=== PATIENT | female | born 1940 | race Hispanic/Latino ===

== ENCOUNTER 2016-07-10 02:40 | Emergency (ER) | payer MEDICARE ==
[2016-07-10 03:55] LABS: Hematocrit 38.5 % (30.3-42.9); Hemoglobin 12.9 gm/dl (10.1-14.3); Mean Corpuscular HGB Conc 34 % (30-34); Mean Corpuscular Hemoglobin 30 pg (28-32); Mean Corpuscular Volume 91 fl (79-97); Platelet Count 154 K/mm3 (140-440); Red Blood Count 4.24 M/mm3 (3.65-5.03); Red Cell Distribution Width 14.6 % (13.2-15.2)
[2016-07-10 04:16] LABS: BUN/Creatinine Ratio 22.14; Calcium 10.2 mg/dL (8.4-10.2); Chloride 105.7 mmol/L (98-107); Potassium 4.1 mmol/L (3.6-5.0)
[2016-07-10 04:56] LABS: Bilirubin,Urine NEG (Negative); Blood,Urine NEG (Negative); Ketones,Urine NEG (Negative); Leukocyte Esterase,Urine TR (Negative); Mucus,Urine FEW /HPF; Nitrite,Urine NEG (Negative); Protein,Urine <15 mg/dL mg/dL (Negative); Urobilinogen,Urine < 2.0 mg/dL (<2.0)
--- NOTE | 2016-07-10 05:17 | Emergency Department Report ---
ED General Adult HPI - General Chief complaint: Seizure Stated complaint: SEIZURE Time Seen by Provider: 07/10/16 03:19 Source: EMS (ems notes not available at time of chart dictation), RN notes reviewed, old records reviewed Mode of arrival: Stretcher Limitations: Other (patient nonverbal as per old medical records and oven unloader.) - History of Present Illness Initial comments: This is a 75-year-old female, previously unknown to me. Patient nonverbal. She is unable to offer history. History is obtained by speaking to the patient' s oven unloader at the [facility], Miss Maryam Almeida Phone number: [phone]; [phone] As for the patient's oven unloader, patient was found to have a generalized tonic- clonic episode which lasted a few minutes. There was no trauma, the patient did not fall or hit her head. Energy Efficiency Specialist states patient has been compliant with medications. Energy Efficiency Specialist states no fever, lethargy, vomiting, irritability, and oven unloader states compliance with medications. She thinks the last convulsive episode was 6 months ago but is not certain. Medications include Keppra,zonisamide -: Sudden, minutes(s) Improves with: none Worsens with: none Associated Symptoms: denies other symptoms, other (as per oven unloader, only symptoms were convulsion) - Related Data Home Medications Medication Instructions Recorded Confirmed Last Taken Lactose-Reduced Food [Ensure 1 can PO BID 01/01/15 07/10/16 07/09/16 Liquid] Alendronate Sodium [Fosamax] 70 mg PO QWEEK 07/10/16 07/10/16 07/07/16 Ca/D3/Mag Ox/Zinc/Crystal Evaluator/Dat/Bor 1 each PO QAM 07/10/16 07/10/16 07/09/16 [Calcium 600+D3 Plus Caplet] Levothyroxine [Synthroid] 50 mcg PO QAM 07/10/16 07/10/16 07/09/16 Metoclopramide HCl [Reglan TAB] 5 mg PO BID 07/10/16 07/10/16 07/09/16 Multivits,Ca,Minerals/Iron/FA 1 each PO QDAY 07/10/16 07/10/16 07/09/16 [Thera M Plus Tablet] [place]-3 Fatty Acids/Fish Oil [Fish 1 each PO BID 07/10/16 07/10/16 07/09/16 Oil] Ranitidine HCl [Zantac 300 MG TAB] 300 mg PO QPM 07/10/16 07/10/16 07/09/16 Simethicone [Gas Relief] 40 mg PO BID 07/10/16 07/10/16 07/09/16 Zonisamide 300 mg PO BID 07/10/16 07/10/16 07/09/16 Previous Rx's Medication Instructions Recorded Last Taken Type Docusate Sodium [Colace CAP] 100 mg PO BID #60 capsule 03/19/15 07/09/16 Rx levETIRAcetam [Keppra TAB] 500 mg PO BID #60 tablet 03/19/15 07/09/16 Rx Allergies Allergy/AdvReac Type Severity Reaction Status Date / Time lactose Allergy Unknown Verified 01/01/15 00:46 penicillin Allergy Unknown Verified 12/31/14 23:03 ED Review of Systems ROS: Stated complaint: SEIZURE Other details as noted in HPI ED Past Medical Hx - Past Medical History Previous Medical History?: Yes Hx GERD: Yes Hx Seizures: Yes Additional medical history: LEFT KIDNEY CYST, LACTOSE INTOLERANCE, PARTIAL COLONECTOMY, OSTEOPOROSIS, HYPOTHYROIDISM, VON RECHINGHAUSERS SYNDROME, DOWAGER' S, HEART MURMUR, TD, PROFOUND IDD, HEARING LOSS - Surgical History Past Surgical History?: No - Social History Smoking Status: Unknown if ever smoked - Medications Home Medications: Home Medications Medication Instructions Recorded Confirmed Last Taken Type Lactose-Reduced Food [Ensure 1 can PO BID 01/01/15 07/10/16 07/09/16 History Liquid] Docusate Sodium [Colace CAP] 100 mg PO BID #60 capsule 03/19/15 07/10/16 Rx levETIRAcetam [Keppra TAB] 500 mg PO BID #60 tablet 03/19/15 07/10/16 07/09/16 Rx Alendronate Sodium [Fosamax] 70 mg PO QWEEK 07/10/16 07/10/16 07/07/16 History Ca/D3/Mag Ox/Zinc/Crystal Evaluator/Dat/Bor 1 each PO QAM 07/10/16 07/10/16 07/09/16 History [Calcium 600+D3 Plus Caplet] Levothyroxine [Synthroid] 50 mcg PO QAM 07/10/16 07/10/16 07/09/16 History Metoclopramide HCl [Reglan TAB] 5 mg PO BID 07/10/16 07/10/16 07/09/16 History Multivits,Ca,Minerals/Iron/FA 1 each PO QDAY 07/10/16 07/10/16 07/09/16 History [Thera M Plus Tablet] [place]-3 Fatty Acids/Fish Oil [Fish 1 each PO BID 07/10/16 07/10/16 07/09/16 History Oil] Ranitidine HCl [Zantac 300 MG TAB] 300 mg PO QPM 07/10/16 07/10/16 07/09/16 History Simethicone [Gas Relief] 40 mg PO BID 07/10/16 07/10/16 07/09/16 History Zonisamide 300 mg PO BID 07/10/16 07/10/16 07/09/16 History ED Physical Exam - General Limitations: Other (patient is nonverbal.) General appearance: alert, in no apparent distress, other (no large intraoral lacerations or obvious tongue bites) - Head Head exam: Present: atraumatic, normocephalic - Eye Eye exam: Present: normal appearance, PERRL - ENT ENT exam: Present: other - Neck Neck exam: Present: normal inspection - Respiratory Respiratory exam: Present: normal lung sounds bilaterally. Absent: respiratory distress - Cardiovascular Cardiovascular Exam: Present: regular rate, normal rhythm, normal heart sounds. Absent: bradycardia, tachycardia, irregular rhythm, systolic murmur, diastolic murmur, rubs, gallop - GI/Abdominal GI/Abdominal exam: Present: soft, normal bowel sounds. Absent: distended, tenderness, guarding, rebound, rigid, pulsatile mass - Extremities Exam Extremities exam: Present: normal inspection, full ROM, normal capillary refill. Absent: tenderness, pedal edema, joint swelling, calf tenderness - Back Exam Back exam: Present: normal inspection, full ROM. Absent: tenderness, CVA tenderness (R), CVA tenderness (L), muscle spasm, paraspinal tenderness, vertebral tenderness - Neurological Exam Neurological exam: Present: alert, other (patient is nonverbal. Moves 4 extremities spontaneously. Unable to participate in mental status exam, or sensory exam.) - Psychiatric Psychiatric exam: Present: other (patient is nonverbal) - Skin Skin exam: Present: warm, dry, intact, normal color. Absent: rash ED Course Vital Signs 07/10/16 07/10/16 07/10/16 02:45 03:58 04:30 Temperature 98.2 F 98.8 F Pulse Rate 69 Respiratory 18 21 Rate Blood Pressure 113/43 [Right] O2 Sat by Pulse 100 96 Oximetry 07/10/16 06:03 Temperature Pulse Rate 74 Respiratory 20 Rate Blood Pressure 106/47 [Right] O2 Sat by Pulse 95 Oximetry - Reevaluation(s) Reevaluation #1: 07/10/16 06:00 Differential diagnosis: Urinary tract infection, electrolyte balance, pneumonia, breakthrough seizure Assessment and plan: 75-year-old female with episode of breakthrough seizure. As per review of her old chart she is nonverbal. She appears to be back to her mental status baseline. Physical examination is unremarkable. Chest x-ray is unremarkable. Urinalysis is unremarkable. No seizure-like activity while in the ER. Observed in the ER for a prolonged period of time with no convulsive-like activity. Vital signs were unremarkable. Was given 1 g of Keppra orally. CT scan of the brain is negative for acute disease. plan to discharge patient to follow up with outpatient primary care, outpatient neurology. mild renal insufficiency is appreciated; pmd can follow this up 07/10/16 06:05 07/10/16 06:07 07/10/16 06:26 ED Medical Decision Making - Lab Data Result diagrams: 07/10/16 03:43 07/10/16 03:43 Vital Signs 07/10/16 07/10/16 07/10/16 02:45 03:58 04:30 Temperature 98.2 F 98.8 F Pulse Rate 69 Respiratory 18 21 Rate Blood Pressure 113/43 [Right] O2 Sat by Pulse 100 96 Oximetry 07/10/16 06:03 Temperature Pulse Rate 74 Respiratory 20 Rate Blood Pressure 106/47 [Right] O2 Sat by Pulse 95 Oximetry Lab Results 07/10/16 07/10/16 07/10/16 Range/Units 03:43 03:43 Unknown WBC 12.0 H (4.5-11.0) K/mm3 RBC 4.24 (3.65-5.03) M/mm3 Hgb 12.9 (10.1-14.3) gm/dl Hct 38.5 (30.3-42.9) % MCV 91 (79-97) fl MCH 30 (28-32) pg MCHC 34 (30-34) % RDW 14.6 (13.2-15.2) % Plt Count 154 (140-440) K/mm3 Sodium 140 (137-145) mmol/L Potassium 4.1 (3.6-5.0) mmol/L Chloride 105.7 (98-107) mmol/L Carbon Dioxide 20 L (22-30) mmol/L Anion Gap 18 mmol/L BUN 31 H (7-17) mg/dL Creatinine 1.4 H (0.7-1.2) mg/dL Estimated GFR 37 ml/min BUN/Creatinine Ratio 22.14 % Glucose 103 H (65-100) mg/dL Calcium 10.2 (8.4-10.2) mg/dL Urine Color Yellow (Yellow) Urine Turbidity Clear (Clear) Urine pH 5.0 (5.0-7.0) Ur Specific [place] 1.018 (1.003-1.030) Urine Protein <15 mg/dl (Negative) mg/dL Urine Glucose (UA) Neg (Negative) mg/dL Urine Ketones Neg (Negative) mg/dL Urine Blood Neg (Negative) Urine Nitrite Neg (Negative) Urine Bilirubin Neg (Negative) Urine Urobilinogen < 2.0 (<2.0) mg/dL Ur Leukocyte Esterase Tr (Negative) Urine WBC (Auto) 6.0 (0.0-6.0) /HPF Urine RBC (Auto) 2.0 (0.0-6.0) /HPF U Epithel Cells (Auto) < 1.0 (0-13.0) /HPF Urine Mucus Few /HPF - Radiology Data Radiology results: report reviewed, image reviewed xr chest negative ct head negative for acute disease Critical care attestation.: If time is entered above; I have spent that time in minutes in the direct care of this critically ill patient, excluding procedure time. ED Disposition Clinical Impression: Convulsion Qualifiers: Convulsion type: unspecified Qualified Code(s): R56.9 - Unspecified convulsions Disposition: DC/TX HOME UNDER HOME HEALTH Is pt being admited?: No Does the pt Need Aspirin: No Condition: Stable Instructions: Recurrent Seizures Adult (ED) Additional Instructions: X-ray studies were unremarkable, with the exception of mild renal insufficiency. I recommend that you follow up with a primary care doctor for this within the next week to 2 weeks. In addition, he should follow up with the primary care doctor or neurology specialist for convulsions/seizures. Cultures were sent today, results will be available in the next 3-5 days. Have primary care doctor contact the medical records department to obtain culture results. Return to the ER right away with chest pain, shortness of breath, nausea, vomiting diarrhea, recurrent seizure-like activity, new, worsening or different symptoms. Referrals: DR HARJIT [Other] - 3-5 Days JARROD FORREST MD [Staff Physician] - 3-5 Days DANNY EVANS MD [Staff Physician] - 3-5 Days
[2016-07-10] MEDS ORDERED: KEPPRA PO ONE (06:04)
--- NOTE | 2016-07-10 06:11 | Cat Scan Report ---
FINAL REPORT PROCEDURE: CT HEAD/BRAIN WO CON TECHNIQUE: Computerized tomography of the head was performed without contrast material. HISTORY: Seizure COMPARISON: No prior studies are available for comparison. FINDINGS: Skull and scalp: Normal. Paranasal sinuses: Normal. Ventricles and subarachnoid spaces: There is mild central and cortical atrophy. There is no hydrocephalus or asymmetry.. Cerebrum: No evidence of hemorrhage, acute infarction or mass . Cerebellum and brainstem: No evidence of hemorrhage, acute infarction or mass. Vasculature: Normal. Comments: There is mild chronic deep white matter ischemic gliosis.. IMPRESSION: There are chronic involutional changes. There is no acute intracranial abnormality per
--- NOTE | 2016-07-10 08:04 | XRay Report ---
AP CHEST: HISTORY: Seizure. FINDINGS: No comparison. Borderline heart size and pulmonary venous structures are identified. The interstitium is slightly prominent particularly at the left lung base. This appears to represent chronic scarring. Otherwise, the lungs are clear. No pleural effusion or pneumothorax. The bony structures are mildly demineralized but intact. IMPRESSION: Borderline heart size and pulmonary vascularity. Chronic interstitial changes. No convincing pneumonia.
[2016-07-10 10:17] VITALS: BP 87/45
== END 2016-07-10 06:11 | disposition home health service (06) ==
LOC: ED 02:40
DX: R56.9 Unspecified convulsions (principal); K21.9 Gastro-esophageal reflux disease without esophagitis; E03.9 Hypothyroidism, unspecified; Z88.0 Allergy status to penicillin; Z88.8 Allergy status to other drugs, medicaments and biological substances
CPT/HCPCS: 36415; 70450; 71010; 80048; 81001; 82962; 85027; 87076; 87086; 87186